=== PATIENT | male | born 1970 | race Caucasian/White ===

== ENCOUNTER 2018-10-23 13:53 | Inpatient (IN) | payer BC ==
[~2018-10-23] VITALS: Ht 172.7 cm; Wt 113.4 kg
[2018-10-23 14:05] VITALS: BP 172/107
--- NOTE | 2018-10-23 14:08 | NUR ---
PATIENT TRIAGED, EDMD AWARE OF PT STATUS, EKG PERFORMED.
--- NOTE | 2018-10-23 15:54 | NUR ---
PT AMBULATED TO ER BED 04
--- NOTE | 2018-10-23 16:00 | NUR ---
PT C/O L SIDED CHEST PAIN 3/10 PAIN, DENIES NVD, +FINGER PARASTHESIAS BILATERALLY. STATES HE HAS HTN BUT HASN'T BEEN COMPLIANT WITH MEDICATIONS X 1 YEAR. HX---HTN MEDS---NONE/NONCOMPLIANT
[2018-10-23] MEDS ORDERED: ASPIRIN 325 MG TAB PO ONE (16:05)
[2018-10-23] MEDS ORDERED: NITROGLYCERIN 0.4 MG TAB SL ONE (16:05)
[2018-10-23 16:26] LABS: BASOPHILS # (AUTO) 0.1 K/uL (0.00-0.22); BASOPHILS % (AUTO) 0.6 % (0.0-2.0); EOSINOPHILS # (AUTO) 0.2 K/uL (0-0.4); EOSINOPHILS % (AUTO) 1.6 % (0.0-4.0); HEMATOCRIT 42.4 % (36-52); LYMPHOCYTES # (AUTO) 1.7 K/uL (2.0-11.5); LYMPHOCYTES % (AUTO) 16.2 % (20.5-51.1); MEAN CORPUSCULAR HEMOGLOBIN 31 pg (27-31); MEAN CORPUSCULAR HGB CONC 33 g/dL (33-37); MEAN CORPUSCULAR VOLUME 93.5 fL (80-94); MONOCYTES # (AUTO) 0.6 K/uL (0.8-1.0); MONOCYTES % (AUTO) 6.3 % (1.7-9.3); NEUTROPHILS # (AUTO) 7.8 K/uL (1.8-7.7); NEUTROPHILS % (AUTO) 75.3 % (42.2-75.2); PLATELET COUNT (AUTO) 220 K/uL (140-450); RED BLOOD CELL COUNT(AUTO) 4.54 MIL/uL (4.20-6.10); RED CELL DISTRIBUTION WIDTH 12.9 % (11.6-13.7); WHITE BLOOD COUNT (AUTO) 10.3 K/uL (4.8-10.8)
--- NOTE | 2018-10-23 16:30 | NUR ---
xray at bedside
--- NOTE | 2018-10-23 16:31 | NUR ---
Pt provided with urinal but unable to provide urine at this time
[2018-10-23 16:59] LABS: CREATINE KINASE MB 2.4 ng/mL (0-3.6)
[2018-10-23 17:00] LABS: CARBON DIOXIDE 32.3 mmol/L (21-32); CREATININE 1.1 mg/dL (0.7-1.3); POTASSIUM 3.3 mmol/L (3.5-5.1)
[2018-10-23 17:06] LABS: ALBUMIN 3.9 g/dL (3.4-5.0); TOTAL BILIRUBIN 0.3 mg/dL (0.0-1.0)
[2018-10-23] MEDS ORDERED: MORPHINE SULFATE 4 MG/ML SYR IVP PRN (18:25)
[2018-10-23] MEDS ORDERED: DOCUSATE SODIUM 100 MG GELCAP PO PRN (18:25)
[2018-10-23] MEDS ORDERED: HYDROcodone/APAP 5/325 MG 1 TAB TAB PO PRN (18:25)
[2018-10-23] MEDS ORDERED: LORazepam 2 MG/ML VIAL IM/IVP PRN (18:25)
[2018-10-23] MEDS ORDERED: ACETAMINOPHEN 325 MG TAB PO PRN (18:25)
[2018-10-23] MEDS ORDERED: ONDANSETRON 4 MG/2 ML VIAL IM/IVP PRN (18:25)
[2018-10-23] MEDS ORDERED: NITROGLYCERIN 0.4 MG TAB SL PRN (18:30)
[2018-10-23] MEDS ORDERED: hydrALAZINE 20 MG/ML VIAL IVP ONE (18:35)
[2018-10-23 18:39] LABS: BARBITURATE, URINE NEG. ng/ml (NEG <=200); BENZODIAZEPINE, URINE NEG. ng/mL (NEG <=200); CANNABINOID, URINE NEG. ng/mL (NEG <=50); COCAINE, URINE NEG. ng/mL (NEG <=300); OPIATE, URINE NEG. ng/mL (NEG <=2000); PHENCYCLIDINE SCREEN,URINE NEG. ng/mL (NEG <=25)
--- NOTE | 2018-10-23 18:55 | NUR ---
RECEIVED PATIENT FROM [facility], ARRIVED INTO UNIT VIA WHEELCHAIR, AMBULATED TO BED WITH STEADY GAIT. CHIEF COMPLAINT OF CHEST PAIN, HX OF HTN, ELEVATED CHOLESTEROL. DX - CHEST PAIN. VITAL SIGNS UPON ADMISSION ARE FOLLOWS: BP 158/106, RR 19, HR 81, TEMP 98.0, O2Sat 96% ON ROOM AIR. PATIENT IS A/Ox4, AMBULATORY, ABLE TO MAKE NEEDS KNOWN. INTRODUCED SELF AND RN DENNIS. PATIENT BOARD UPDATED. NO SOB OR DISTRESS NOTED. NO COMPLAINTS OF CHEST PAIN UPON ADMISSION. IV SITE ON RIGHT ANTECUBITAL, INTACT, FLUSHED AND PATENT, NO S/SX OF REDNESS, SWELLING, INFECTION NOTED. SKIN INTACT. MADE PATIENT FAMILIAR WITH ROOM, BED IN THE LOWEST POSITION, CALL LIGHT WITHIN REACH. WILL CONTINUE TO MONITOR.
--- NOTE | 2018-10-23 18:55 | NUR ---
Patient will be admitted to care of Dr Mcintyre. Admited to tele room 106a. Belongings list completed. Report to [facility].
[2018-10-23 19:00] LABS: MAGNESIUM 1.8 mg/dL (1.8-2.4); PHOSPHORUS 2.6 mg/dL (2.5-4.9); THYROID STIMULATING HORMONE 1.48 uIU/mL (0.34-3.74)
[2018-10-23] MEDS ORDERED: ZOLPIDEM 5 MG TAB PO PRN (19:00)
[2018-10-23 19:06] LABS: PROTHROMBIN TIME 9.3 secs (10.8-13.4)
[2018-10-23 19:42] LABS: APPEARANCE,URINE CLEAR (CLEAR); BILIRUBIN,URINE NEGATIVE (NEGATIVE); BLOOD, URINE NEGATIVE (NEGATIVE); COLOR,URINE YELLOW (YELLOW); LEUKOCYTE ESTERASE ,URINE NEGATIVE (NEGATIVE); NITRITE, URINE NEGATIVE (NEGATIVE); PH,URINE 7.5 (5.0-9.0); UGLUCOSE NEGATIVE (NEGATIVE)
--- NOTE | 2018-10-23 19:55 | NUR ---
LATEST BP-154/93, HR-80, DR TAPIA MADE AWARE, STATED NOT TO ADMINISTER THE HYDRALAZINE IVP ONE TIME DOSE.
[2018-10-23 20:00] VITALS: BP 158/106
[2018-10-23] MEDS ORDERED: KCL 20 MEQ/WATER INJ PREMIX 100 ML IV ONE (20:05)
[2018-10-23] MEDS ORDERED: KETOROLAC 15 MG/ML VIAL IVP ONE (20:10)
[2018-10-23] MEDS: ATORVASTATIN 20 MG TAB PO SCH (20:44)
[2018-10-23] MEDS ORDERED: METOPROLOL 25 MG TAB PO SCH (21:00)
[2018-10-23] MEDS: NACL 0.9% 1,000 ML IV SCH (21:00)
--- NOTE | 2018-10-23 22:10 | NUR ---
MADE ROUNDS; PATIENT ASLEEP, EYES CLOSED, VISIBLE CHEST RISE AND FALL NOTED. WILL CONTINUE TO MONITOR.
[2018-10-24] VITALS (8 sets, daily range): BP systolic 122–153; BP diastolic 81–101
--- NOTE | 2018-10-24 01:16 | NUR ---
FREQUENT CHECKS MADE. PATIENT ASLEEP, EYES CLOSED, VISIBLE CHEST RISE AND FALL NOTED. SNORING. WILL CONTINUE TO MONITOR.
[2018-10-24] MEDS ORDERED: hydrALAZINE 20 MG/ML VIAL IVP SCH (04:00)
--- NOTE | 2018-10-24 04:11 | NUR ---
BP CHECKED X2 PRE HYDRALAZINE ADMINISTRATION, #1 BP-141/106, HR-73, #2 BP-149/101, HR-74, DR TAPIA MADE AWARE, STATED HOLD HYDRALAZINE FOR NOW, WILL RECHECK BP AGAIN LATER, PT ASYMPTOMATIC, DENIES CHEST PAIN, NO SOB NOTED, MONITORED CLOSELY.
--- NOTE | 2018-10-24 05:35 | NUR ---
BP RECHECKED-152/89, HR-70, DR TAPIA MADE AWARE, STATED DON'T GIVE THE APRESOLINE, PT SLEEPING, NO SIGNS OF DISTRESS, MONITORED CLOSELY.
[2018-10-24 06:48] LABS: CARBON DIOXIDE 32.3 mmol/L (21-32); POTASSIUM 4.3 mmol/L (3.5-5.1)
[2018-10-24 06:53] LABS: MAGNESIUM 2.1 mg/dL (1.8-2.4); PHOSPHORUS 3.4 mg/dL (2.5-4.9)
[2018-10-24] MEDS ORDERED: APAP/BUTAL/CAFF 325/50/40 MG 1 TAB PO PRN (06:55)
--- NOTE | 2018-10-24 07:10 | NUR ---
ENDORSED PATIENT TO AM CHARMAINE LOGAN. PATIENT IN STABLE CONDITION.
--- NOTE | 2018-10-24 07:15 | NUR ---
RECEIVED PT FROM HEALTH POLICY ANALYST NURSE, PT IS AWAKE AND LYING ON THE BED, SIDE RAILS ARE UP AND CALL LIGHT WITHIN REACH. PT HAS AN IV LINE ON THE RT AC G. 20 WITH NS AT 60ML/HR INFUSING. PT VERBALIZED A HEADACHE AND WILL MEDICATE. NO OTHER UNTOWARD SIGN AND SYMPTOM NOTED. WILL MONITOR PT.
--- NOTE | 2018-10-24 08:05 | NUR ---
PATIENT HAS BEEN SCREENED AND CATEGORIZED MODERATE NUTRITION RISK. PATIENT WILL BE SEEN WITHIN 3-5 DAYS OF ADMISSION. 10/26/18DONITA [address]
[2018-10-24 08:20] LABS: BASOPHILS % (AUTO) 0.8 % (0.0-2.0); EOSINOPHILS # (AUTO) 0.1 K/uL (0-0.4); EOSINOPHILS % (AUTO) 2.3 % (0.0-4.0); HEMATOCRIT 41.8 % (36-52); HEMOGLOBIN 13.8 g/dL (12.0-18.0); LYMPHOCYTES % (AUTO) 16.3 % (20.5-51.1); MEAN CORPUSCULAR HEMOGLOBIN 31 pg (27-31); MEAN CORPUSCULAR HGB CONC 33 g/dL (33-37); MONOCYTES # (AUTO) 0.4 K/uL (0.8-1.0); MONOCYTES % (AUTO) 6.5 % (1.7-9.3); NEUTROPHILS # (AUTO) 4.6 K/uL (1.8-7.7); NEUTROPHILS % (AUTO) 74.1 % (42.2-75.2); PLATELET COUNT (AUTO) 187 K/uL (140-450); RED CELL DISTRIBUTION WIDTH 13.5 % (11.6-13.7); WHITE BLOOD COUNT (AUTO) 6.2 K/uL (4.8-10.8)
[2018-10-24] MEDS: METOPROLOL 25 MG TAB PO SCH ×2 (08:37→20:46)
[2018-10-24] MEDS: LISINOPRIL 5 MG TAB PO SCH (08:38)
[2018-10-24] MEDS: ASPIRIN 81 MG TAB.CHEW PO SCH (08:38)
--- NOTE | 2018-10-24 08:42 | NUR ---
PT IS AWAKE AND VITAL SIGNS CHECKED PRIOR TO MEDICATION ADMINISTRATION, PT TOLERATED IT AND NO SIGN OF DSITRESS NOTED. WILL CONTINUE TO MONITOR PT.
--- NOTE | 2018-10-24 08:55 | NUR ---
PT IS OFF THE UNIT NOW FOR A CT OF THE HEAD WITHOUT CONTRAST, PT IS STABLE AT THIS TIME.
[2018-10-24] MEDS ORDERED: LISINOPRIL 5 MG TAB PO SCH (09:00)
--- NOTE | 2018-10-24 09:05 | NUR ---
PT IS BACK TO FROM FROM CT OF HEAD WITHOUT CONTRAST.
[2018-10-24] MEDS: NACL 0.9% 1,000 ML IV SCH (11:05)
--- NOTE | 2018-10-24 12:31 | NUR ---
PT IS EATING HIS LUNCH AND ON THE BEDSIDE, ORAL MEDICATION WAS GIVEN AND PT TOLERATED IT. VITAL SIGNS TAKEN PRIOR TO MEDICATION ADMINISTRATION, NO SIGN OF DISTRESS NOTED AND WILL CONTINUE TO MONITOR PT.
[2018-10-24] MEDS ORDERED: amLODIPine 5 MG TAB PO SCH (13:00)
--- NOTE | 2018-10-24 19:20 | NUR ---
RECEIVED REPORT FROM DOREEN MONTANO DAYSHIFT NURSE AT BEDSIDE FOR CONTINUITY OF CARE, PT IN STABLE CONDITION.
--- NOTE | 2018-10-24 19:20 | NUR ---
ENDORSED PT TO [facility] SHIFT NURSEHEBER FOR CONTINUITY OF CARE. PT IS STABLE AT THIS TIME.
[2018-10-24] MEDS: ATORVASTATIN 20 MG TAB PO SCH (20:45)
[2018-10-24] MEDS: guaiFENesin 600 MG TABER PO SCH (20:46)
--- NOTE | 2018-10-24 20:58 | NUR ---
PT SITTING UP IN LOW BED WITH SIDE RAILS UP X 2 AND CALL AGUIRRE IN REACH. HE IS AOX4 WITH 2LITERS OF SUPPLEMENTAL O2 VIA N/C. PT LUNG SOUNDS ARE CLEAR AND PT ABDOMEN IS FIRM AND DISTENDED WITH HYPOACTIVE BOWEL SOUNDS. PT SAID HE HAD A BM YESTERDAY. PT HAS NO C/O OF PAIN OR DISTRESS NOTED. V/S FOLLOWS T 97.7 P 70 R 18 B/P 133/82 02 94%. PT GIVEN DUE MEDS OF LIPITOR, LOPRESSOR AND MUCINEX. ALL REQUESTED NEEDS ATTENDED AND CALL AGUIRRE IN REACH.
[2018-10-25] VITALS: BP 137/92
--- NOTE | 2018-10-25 00:30 | NUR ---
PT IN BED ASLEEP , BUT AROUSABLE TO NAME AND LIGHT TOUCH. V/S FOLLOWS T 97.0 P 72 R 18 B/P 137/92 02 98 WITH 2 LITERS VIA N/C. BED LOW WITH SIDE RAILS UP X2. PT DENIES PAIN AT THIS TIME. HE DID AMBULATE STEADILY TO BATHROOM AND BACK. NSR ON TELEMONITOR.
--- NOTE | 2018-10-25 03:08 | NUR ---
PT IN BED SLEEPING NO S/S OF PAIN OR DISTRESS. BED LOW SIDE RAILS UP X2 AND CALL AGUIRRE IN REACH.
[2018-10-25] MEDS: NACL 0.9% 1,000 ML IV SCH (03:45)
[2018-10-25 04:00] VITALS: BP 120/81
[2018-10-25] MEDS ORDERED: ATOR20TA40 PO (07:16)
[2018-10-25] MEDS ORDERED: FLONAS NS (07:16)
[2018-10-25] MEDS ORDERED: GUAI-791 PO (07:16)
[2018-10-25] MEDS ORDERED: LISI-424 PO (07:16)
[2018-10-25] MEDS ORDERED: AMLO5TAB6 PO (07:16)
[2018-10-25] MEDS ORDERED: ASPI81CT95 PO (07:16)
[2018-10-25 07:30] LABS: BASOPHILS % (AUTO) 0.6 % (0.0-2.0); EOSINOPHILS # (AUTO) 0.2 K/uL (0-0.4); EOSINOPHILS % (AUTO) 2.4 % (0.0-4.0); HEMATOCRIT 42.1 % (36-52); HEMOGLOBIN 13.9 g/dL (12.0-18.0); LYMPHOCYTES # (AUTO) 1.1 K/uL (2.0-11.5); LYMPHOCYTES % (AUTO) 14.4 % (20.5-51.1); MEAN CORPUSCULAR HEMOGLOBIN 31 pg (27-31); MEAN CORPUSCULAR HGB CONC 33 g/dL (33-37); MEAN CORPUSCULAR VOLUME 94.8 fL (80-94); MONOCYTES # (AUTO) 0.4 K/uL (0.8-1.0); MONOCYTES % (AUTO) 5.1 % (1.7-9.3); NEUTROPHILS # (AUTO) 5.7 K/uL (1.8-7.7); NEUTROPHILS % (AUTO) 77.5 % (42.2-75.2); PLATELET COUNT (AUTO) 180 K/uL (140-450); RED BLOOD CELL COUNT(AUTO) 4.43 MIL/uL (4.20-6.10); RED CELL DISTRIBUTION WIDTH 13.4 % (11.6-13.7); WHITE BLOOD COUNT (AUTO) 7.3 K/uL (4.8-10.8)
--- NOTE | 2018-10-25 07:30 | NUR ---
ENDORSED CARE TO SEBASTIAN RN DAYSHIFT NURSE AT BEDSIDE FOR CONTINUITY OF CARE, PT IN STABLE CONDITION.
--- NOTE | 2018-10-25 07:31 | NUR ---
RECEIVED BEDSIDE REPORT FROM PAPER NOVELTY MAKER NURSE. PATIENT IS AWAKE, ALERT AND ORIENTEDX4. NO SIGNS OF DISTRESS ON RA. PATIENT IS AMBULATORY. GAIT IS STEADY. CONTINENT. IV ON R AC 20G INFUSING NS AT 60 CLEAN, DRY AND INTACT. TELE MONITOR IN PLACE. BED IN LOW POSITION. CALL LIGHT WITHIN REACH. WILL CONTINUE TO MONITOR THE PATIENT.
[2018-10-25 08:00] VITALS: BP 141/94
[2018-10-25] MEDS: METOPROLOL 25 MG TAB PO SCH (08:29)
[2018-10-25] MEDS: LISINOPRIL 5 MG TAB PO SCH (08:29)
[2018-10-25] MEDS: guaiFENesin 600 MG TABER PO SCH (08:29)
[2018-10-25] MEDS: ASPIRIN 81 MG TAB.CHEW PO SCH (08:30)
--- NOTE | 2018-10-25 08:31 | NUR ---
ADMINISTERED MEDS. PATIENT TOLERATED WELL. WILL CONTINUE TO MONITOR THE PATIENT
[2018-10-25 08:37] LABS: CARBON DIOXIDE 33.3 mmol/L (21-32); CREATININE 0.9 mg/dL (0.7-1.3); POTASSIUM 4.3 mmol/L (3.5-5.1)
[2018-10-25 08:46] LABS: MAGNESIUM 2.1 mg/dL (1.8-2.4); PHOSPHORUS 3.4 mg/dL (2.5-4.9)
[2018-10-25] MEDS ORDERED: amLODIPine 5 MG TAB PO SCH (09:00)
[2018-10-25] MEDS ORDERED: FLUTICASONE NASAL 50 MCG/ACTUATION 16 GM BTL NS SCH (09:00)
--- NOTE | 2018-10-25 10:27 | NUR ---
FAMILY AT BEDSIDE. PATIENT HAS NO SIGNS OF DISTRESS ON RA. WILL CONTINUE TO MONITOR THE PATIENT.
--- NOTE | 2018-10-25 11:00 | NUR ---
patient left to do stress test. will continue to monitor patient when back
--- NOTE | 2018-10-25 11:58 | NUR ---
PATIENT BACK FROM STRESS TEST. PATIENT BACK IN STABLE CONDITION
[2018-10-25 12:00] VITALS: BP 130/85
--- NOTE | 2018-10-25 12:00 | NUR ---
FAMILY AT BEDSIDE. NO SIGNS OF DISTRESS. WILL CONTINUE TO MONITOR
--- NOTE | 2018-10-25 13:55 | NUR ---
EDUCATED PATIENT AND FAMILY ON DISEASE PROCESS. EDUCATED ON ABN S/SX, WHEN TO GO TO THE ER. EDUCATED ON FOLLOW UP W PCP. EDUCATED ON MEDS. SENT TO PHARMACY. PATIENT REFUSED PNA AND FLU VACCINES D/T REACTIONS. REMOVED IV. TIP INTACT. REMOVED TELE. ID BANDS REMOVED.
== END 2018-10-25 13:55 | disposition home or self-care (01) | DRG 206 ==
LOC: MED 13:53 → MTU 18:25
PROVIDERS: ADMIT General Practice; ATTEND General Practice
DX: M94.0 Chondrocostal junction syndrome [Tietze] (principal); K21.9 Gastro-esophageal reflux disease without esophagitis; E87.6 Hypokalemia; E66.09 Other obesity due to excess calories; E78.1 Pure hyperglyceridemia; J32.9 Chronic sinusitis, unspecified; E83.51 Hypocalcemia; G47.33 Obstructive sleep apnea (adult) (pediatric); I11.9 Hypertensive heart disease without heart failure; Z68.38 Body mass index [BMI] 38.0-38.9, adult; Z82.49 Family history of ischemic heart disease and other diseases of the circulatory system; Z80.1 Family history of malignant neoplasm of trachea, bronchus and lung; Z91.14 Patient's other noncompliance with medication regimen
CPT/HCPCS: 36415; 70450; 71045; 80048; 80053; 80305; 81003; 82550; 82553; 83036; 83690; 83735; 84100; 84134; 84443; 84484; 85025; 85610; 85730; 87081; 93005; 93017; 99285; J0360; J1885; J3480; J7030; Q0092